=== PATIENT | male | born 1955 | race Caucasian/White ===

== ENCOUNTER → 2016-04-28 | Outpatient (CLI) | payer OTHER, MEDICAID ==
--- NOTE | 2016-04-28 15:11 | DX ---
Chest PA and Lateral Indication: Positive PPD. Findings: The lungs are clear. There is a stable thin scar in the left lower lung. There is a stab le stable tiny calcified granuloma in the left upper lobe. Heart size is normal. There is no adenopat hy, consolidation, pleural effusion or apical scarring. No cavitary lesion is identified. There is st able chronic widening of the right AC joint. Impression: Normal. No radiographic evidence for active granulomatous disease.
== END ==
LOC: FIMAGING 14:27
PROVIDERS: ATTEND Nurse Practitioner
DX: R76.11 Nonspecific reaction to tuberculin skin test without active tuberculosis (principal)

== ENCOUNTER → 2016-11-17 | Day surgery (SDC) | payer OTHER, MEDICAID ==
[~2016-11-17] MED LIST: IOPAMIDOL (ISOVUE-300) 100 ML BTL ONE
== END | disposition home or self-care (01) ==
LOC: FIMAGING 09:07
PROVIDERS: ATTEND Internal Medicine Nephrology
PROC: 057F3ZZ Dilation of Left Cephalic Vein, Percutaneous Approach (ICD-10-PCS; principal; 2016-11-17)
PROC: 05763ZZ Dilation of Left Subclavian Vein, Percutaneous Approach (ICD-10-PCS; principal; 2016-11-17)
PROC: B51W1ZZ Fluoroscopy of Dialysis Shunt/Fistula using Low Osmolar Contrast (ICD-10-PCS; principal; 2016-11-17)
CPT/HCPCS: 36902; 36907; C1769; C1894; C1725; J1644; Q9967

== ENCOUNTER → 2017-06-22 | Day surgery (SDC) | payer OTHER, MEDICAID ==
[~2017-06-22] MED LIST changes: +HEPARIN 10,000 UNIT/10 ML MDV (1,000 UNIT/ML) ONE; +LIDOCAINE 1% 300 MG/30 ML SDV ONE
== END | disposition home or self-care (01) ==
LOC: FIMAGING 07:20
PROVIDERS: ATTEND Internal Medicine Nephrology
PROC: 05L Upper Veins, Occlusion (ICD-10-PCS; principal; 2017-06-22)
PROC: 057F3DZ Dilation of Left Cephalic Vein with Intraluminal Device, Percutaneous Approach (ICD-10-PCS; principal; 2017-06-22)
PROC: B51W1ZZ Fluoroscopy of Dialysis Shunt/Fistula using Low Osmolar Contrast (ICD-10-PCS; principal; 2017-06-22)
DX: T82.858A Stenosis of other vascular prosthetic devices, implants and grafts, initial encounter (principal); N18.6 End stage renal disease; Z99.2 Dependence on renal dialysis
CPT/HCPCS: 36903; 36909; C1725; C1769; C1892; C1894; C1876; J1644; Q9967

== ENCOUNTER → 2017-12-21 | Day surgery (SDC) | payer OTHER, MEDICAID ==
[~2017-12-21] MED LIST changes: -IOPAMIDOL (ISOVUE-300) 100 ML BTL ONE; +IOPAMIDOL (ISOVUE-370) 150 ML BTL IV ONE; -LIDOCAINE 1% 300 MG/30 ML SDV ONE
--- NOTE | 2017-12-21 12:46 | PDRADPRE ---
Radiology History & Physical Indication for procedure: renal failure Home medications: Aspirin EC [Aspirin EC 81 mg (*)] 81 mg PO DAILY 11/02/14 [Last Taken 08/21/15] Atorvastatin Calcium [Lipitor 20 mg (*)] 20 mg PO HS 11/02/14 [Last Taken ] Cholecalciferol Vit D3 [Vitamin D3 (*)] 1,000 units PO DAILY 11/02/14 [Last Taken 08/21/15] Sevelamer Carbonate [Renvela] 2,400 mg PO TID 11/02/14 [Last Taken 08/21/15] Insulin Regular Human [Humulin R 100 units/ml (*)] 40 unit SC BID 01/24/15 [ Last Taken 08/21/15] Sensipar 1 tab PO MWF 12/16/17 [Last Taken Unknown] Allergies/Adverse Reactions: cocoa [chocolate] Allergy (Verified 11/02/14 18:34) Mental status: A&Ox3 Heart exam: regular rate and rhythm Lungs exam: clear to auscultation Mallampati Score: Class 2
--- NOTE | 2017-12-21 12:57 | PDRADPN ---
Radiology Procedure Note Date of Procedure: 12/21/17 Radiologist: Yeison Hale Anesthesia: Local (Specify) (Lidocaine) Pre-op Diagnosis: ESRD Post-op Diagnosis: ESRD Indication: AVF evaluation Procedure: Angioplasty, recanalization chronic subclavian venous occlusion Finding(s): Successful angioplasty high grade stenosis cephalic vein stent. Successful sharp recanalization and angioplasty of chronic left subclavian vein occlusion Inf/Abcess present in the surg proc area at time of surgery?: No
== END | disposition home or self-care (01) ==
LOC: FIMAGING 08:10
PROVIDERS: ATTEND Internal Medicine Nephrology
PROC: B34JZZZ Ultrasonography of Left Upper Extremity Arteries (ICD-10-PCS; principal; 2017-12-21)
PROC: 05763ZZ Dilation of Left Subclavian Vein, Percutaneous Approach (ICD-10-PCS; principal; 2017-12-21)
PROC: 057F3ZZ Dilation of Left Cephalic Vein, Percutaneous Approach (ICD-10-PCS; principal; 2017-12-21)
DX: T82.856A Stenosis of peripheral vascular stent, initial encounter (principal); I77.0 Arteriovenous fistula, acquired; N18.6 End stage renal disease
CPT/HCPCS: 36902; 37246; 75820; C1769; C1894; C1725; J1644; Q9967

== ENCOUNTER 2017-12-22 16:17 | Day surgery (SDC) | payer OTHER, MEDICAID ==
[2017-12-22] MEDS ORDERED: fentaNYL 100 MCG/2 ML INJ IVP PRN (16:43)
[2017-12-22] MEDS ORDERED: MEPERIDINE 25 MG/ML SYR IVP PRN (16:43)
[2017-12-22] MEDS ORDERED: PROTAMINE SULFATE 50 MG/5 ML VIAL IVP PRN (16:43)
[2017-12-22] MEDS ORDERED: FLUMAZENIL 0.5 MG/5 ML MDV IVP PRN (16:43)
[2017-12-22] MEDS ORDERED: GLUCAGON HCL 1 MG VIAL IVP PRN (16:43)
[2017-12-22] MEDS ORDERED: NALOXONE HCL 0.4 MG/ML INJ IVP PRN (16:43)
[2017-12-22] MEDS ORDERED: HEPARIN 10,000 UNIT/10 ML MDV (1,000 UNIT/ML) IVP PRN (16:43)
[2017-12-22] MEDS ORDERED: MIDAZOLAM 2 MG/2 ML VIAL IVP PRN (16:43)
[2017-12-22] MEDS ORDERED: ALTEPLASE 2 MG VIAL IVP PRN (16:43)
[2017-12-22] MEDS ORDERED: ceFAZolin 2 GM/DEXTROSE 100 ML IV ONE (16:43)
[2017-12-22] MEDS ORDERED: NS 1,000 ML IV SCH (16:45)
[2017-12-22 17:17] LABS: INR 1.16 (0.83-1.16)
[2017-12-22] MEDS ORDERED: LIDOCAINE 1% 300 MG/30 ML SDV ONE (18:23)
[2017-12-22] MEDS ORDERED: HEPARIN 50,000 UNIT/10 ML VIAL ONE (18:23)
[2017-12-22] MEDS ORDERED: NALOXONE HCL 0.4 MG/ML INJ ONE (18:30)
[2017-12-22] MEDS ORDERED: fentaNYL 100 MCG/2 ML INJ ONE (18:30)
--- NOTE | 2017-12-22 19:03 | PDRADPN ---
Radiology Procedure Note Date of Procedure: 12/22/17 Radiologist: Lori Pelayo Anesthesia: Local (Specify) Pre-op Diagnosis: esrd Post-op Diagnosis: esrd Indication: needs access for dialysis Procedure: tunneled line placement Inf/Abcess present in the surg proc area at time of surgery?: No
[2017-12-22] MEDS ORDERED: IOPAMIDOL (ISOVUE-300) 100 ML BTL ONE (19:18)
[2017-12-22 19:32] VITALS: BP 134/80
== END 2017-12-22 20:20 | disposition home or self-care (01) ==
LOC: FIMAGING 16:17
PROVIDERS: ATTEND Radiology Diagnostic Radiology
PROC: 02HV33Z Insertion of Infusion Device into Superior Vena Cava, Percutaneous Approach (ICD-10-PCS; principal; 2017-12-22 19:12)
PROC: 0JH63XZ Insertion of Tunneled Vascular Access Device into Chest Subcutaneous Tissue and Fascia, Percutaneous Approach (ICD-10-PCS; principal; 2017-12-22 19:12)
DX: N18.6 End stage renal disease (principal)
CPT/HCPCS: J0690; J1644; J2310; J3010; Q9967

== ENCOUNTER 2018-01-04 12:14 | Observation (INO) | payer OTHER, MEDICAID ==
[2018-01-04] MEDS ORDERED: ceFAZolin 2 GM/DEXTROSE 100 ML IV ONE (12:51)
[2018-01-04] MEDS ORDERED: NS 1,000 ML IV ONE (12:52)
[2018-01-04] MEDS ORDERED: LIDOCAINE 1% 2 ML INJ ID PRN (12:52)
[2018-01-04] MEDS ORDERED: THROMBIN (BOVINE) 5,000 UNIT VIAL TP ONE (13:03)
[2018-01-04] MEDS ORDERED: BUPIVACAINE 0.5% 30 ML SDV ONE (13:03)
[2018-01-04] MEDS ORDERED: PROTAMINE SULFATE 50 MG/5 ML VIAL IVP ONE (13:03)
--- NOTE | 2018-01-04 13:23 | PDHPUP ---
History & Physical Update H&P update statement: This history and physical update is based on an assessment of the patient which was completed after admission or registration (within 24 hours), but prior to the surgery/procedure. H&P update: H&P reviewed & patient examined, no change in patient's condition since H&P completed
[2018-01-04 13:38] LABS: PLATELET COUNT 186 10^3/uL (150-400)
[2018-01-04] MEDS ORDERED: fentaNYL 100 MCG/2 ML INJ ONE ×2 (15:10→15:58)
[2018-01-04] MEDS ORDERED: PROPOFOL/EMULSION 500 MG/50 ML BOTTLE IV ONE (15:11)
[2018-01-04] MEDS ORDERED: DEXAMETHASONE 4 MG/ML VIAL ONE (15:39)
[2018-01-04] MEDS ORDERED: ONDANSETRON 4 MG/2 ML VIAL ONE (15:39)
[2018-01-04] MEDS ORDERED: fentaNYL 100 MCG/2 ML INJ IVP PRN (16:05)
[2018-01-04] MEDS ORDERED: ALBUTEROL 3 ML DEYVIAL IH PRN (16:05)
[2018-01-04] MEDS ORDERED: ONDANSETRON 4 MG/2 ML VIAL IVP PRN (16:05)
[2018-01-04] MEDS ORDERED: DEXAMETHASONE 4 MG/ML VIAL IVP PRN (16:05)
[2018-01-04] MEDS ORDERED: NALOXONE HCL 0.4 MG/ML INJ IVP PRN (16:05)
--- NOTE | 2018-01-04 17:05 | POSTOPPROG ---
Post Op Note Date of Operation: 01/04/18 Surgeon: Ata Castillo Monorail Crane Operator: Fernanda Means Anesthesiologist: Christopher Ordaz Anesthesia: GET(General Endotracheal) Pre-op Diagnosis: CRF Post-op Diagnosis: same Procedure: RUE brachiocephalic AVF Findings: calcified artery, good thrill Inf/Abcess present in the surg proc area at time of surgery?: No EBL: Minimal Complications: none
[2018-01-04] MEDS ORDERED: HYDROmorphONE/DILAUDID 2 MG/ML INJ IVP PRN (17:16)
[2018-01-04] MEDS ORDERED: HYDROCODONE/APAP 5/325 TAB PO PRN (17:16)
[2018-01-04] MEDS ORDERED: INSULIN 70/30 HUMAN 100 UNIT/ML SYR SC ONE (21:45)
[2018-01-05] MEDS ORDERED: D50W 25 GM/50 ML VIAL IVP PRN (02:53)
[2018-01-05] MEDS: INSULIN REGULAR HUMAN 100 UNIT/ML UNIT SC SCH ×3 (03:07→11:21)
[2018-01-05] MEDS ORDERED: HYDROmorphONE/DILAUDID 1 MG/ML INJ IVP PRN (08:30)
--- NOTE | 2018-01-05 09:40 | SOAPPROG ---
[facility] Progress Note Assessment/Plan: Assessment: on dialysis/ AVF flow great/ wound ok/ hand perfusion good Plan:home 01/05/18 09:39 Objective: Vital Signs Temp Pulse Resp BP Pulse Ox 35.8 C L 67 18 159/74 H 94 01/05/18 09:14 01/05/18 09:14 01/05/18 09:14 01/05/18 09:14 01/05/18 09:14 Laboratory Results 01/04/18 13:17 01/04/18 13:17 01/04/18 01/05/18 01/06/18 05:59 05:59 05:59 Intake Total 1200 Output Total 0 Balance 1200 ICD10 Worksheet Patient Problems: Problems Problem Status Onset CHF (congestive heart failure) Acute Diabetes mellitus type 2 in obese Acute Diabetic foot infection Acute ESRD (end stage renal disease) on dialysis Acute MRSA (methicillin resistant Staphylococcus aureus) Acute 01/21/15
[2018-01-05 11:27] VITALS: BP 116/54
[2018-01-05] MEDS ORDERED: HEPARIN 50,000 UNIT/10 ML VIAL ONE (12:00)
--- NOTE | 2018-01-05 14:40 | ASDISCHSUM ---
Discharge Information Plan Status:Home with No Needs Medically Cleared to Leave:01/05/2018 Discharge Date:01/05/2018 12:45 PM CM D/C Disposition:Home, Routine, Self-Care ADT D/C Disposition:Home, Routine, Self-Care Projected Discharge Date:01/05/2018 12:45 PM Transportation at D/C:Self Discharge Delay Reason: Follow-Up Date:01/05/2018 12:45 PM Discharge Slot: Final Diagnosis: Placement Information Patient Contact Information Contact Name:CARLOS Relationship:Friend Address:[address] [place] [address] Work Phone: City:[place] Alternate Phone: [facility]/Zip Code:[place] [address] Email: Financial Information Financial Class:Medicare Primary Plan Desc:MEDICARE OUTPATIENT Primary Plan Number:[id number] Secondary Plan Desc:MED[place] Secondary Plan Number:[id number] Assessment Information LACE LACE Length of stay for Answers: Less than 1 day current admission Acuity / Level of Answers: No Care: Did the patient have an inpatient admission? Comorbidities - select Answers: Chronic pulmonary disease all that apply Congestive heart failure Diabetes (uncontrolled or controlled) Moderate or severe liver or renal disease Peripheral vascular disease Other Notes: HTN # of Emergency department Answers: 0 visits in the last 6 months Score: 11 Date Signed: 01/05/2018 02:39 PM Electronically Signed By:Emma Rangel RN Intervention Information Intervention Type:*BISMARK-Signed Date of Service:01/05/2018 12:20 PM Patient Type:Observation Staff Member:Rodolfo Larsen Hours: Discipline: Severity: Comment:
--- NOTE | 2018-01-06 11:57 | CPEKG ---
Test Reason : OPEN Blood Pressure : / mmHG Vent. Rate : 065 BPM Atrial Rate : 065 BPM P-R Int : 239 ms QRS Dur : 102 ms QT Int : 450 ms P-R-T Axes : 006 -03 042 degrees QTc Int : 468 ms Sinus rhythm Prolonged OH interval Inferior infarct, old First degree AVB is new in comparison to prior Confirmed by Ridge De Jesus ([id number]) on 01/06/2018 11:57:27 AM Referred By: Confirmed By:Ridge De Jesus
[2018-01-06] MEDS ORDERED: HEPARIN 5,000 UNIT/0.5 ML INJ SC SCH (22:00)
--- NOTE | 2018-01-10 13:30 | GDS ---
DISCHARGE DIAGNOSES: 1. Renal failure, in need of hemodialysis access. 2. Other diagnoses include: a. Diabetes. b. Peripheral vascular disease. c. Obesity. d. History of below-knee amputation. e. Other problems. PROCEDURES: Right upper extremity arteriovenous fistula creation, brachiocephalic. INTRAOPERATIVE FINDINGS: Patient was found to have a calcified artery, but a good thrill in the fist pasha vein postprocedure. HOSPITAL COURSE: Mr. Garner is a 62-year-old male, well known to us, who had a clotted left upper ext remity AV fistula, and was admitted to undergo right upper extremity AV fistula creation. The proced ure was uncomplicated, and he tolerated it well. He was kept overnight for observation, mostly for s ocial reasons. Nephrology was consulted and assisted in setting up dialysis for the following day. On postoperative day 1 his fistula was flowing well. His neck catheter was working well at dialysis. He was discharged to home in stable condition, with plans for outpatient followup, as well as thelma nued dialysis via his neck catheter. /[id number]/MODL
== END 2018-01-05 12:45 | disposition home or self-care (01) ==
LOC: F2W 12:14 → F3E 15:48 → F2W 17:57
PROVIDERS: ADMIT Surgery; ATTEND Surgery
PROC: 03170ZD Bypass Right Brachial Artery to Upper Arm Vein, Open Approach (ICD-10-PCS; principal; 2018-01-04 15:30)
DX: N18.6 End stage renal disease (principal); E11.9 Type 2 diabetes mellitus without complications; E66.09 Other obesity due to excess calories; Z89.521 Acquired absence of right knee
CPT/HCPCS: 36818; 93005; J0690; J1100; J1644; J1815; J2405; J2704; J2720; J3010

== ENCOUNTER 2018-02-21 10:36 | Emergency (ER) | payer OTHER, MEDICAID ==
[2018-02-21 10:44] VITALS: BP 128/68
--- NOTE | 2018-02-21 10:47 | EDPHY ---
H & P Stated Complaint: Clogged Port Time Seen by Provider: 02/21/18 10:38 HPI/ROS: CHIEF COMPLAINT: Occluded temporary dialysis catheter HISTORY OF PRESENT ILLNESS: The patient is on Wednesday hemodialysis currently has a temporary dialysis catheter awaiting maturation of a right arm AV fistula and presents to the ED with reported occlusion of his temporary dialysis catheter noted today. Interestingly, the patient was in the emergency department approximately 10 days ago with similar symptoms. At that point time he underwent a tPA protocol and ultimately was found to have a patent temporary dialysis catheter. The patient has no acute complaints at this point time. He specifically denies chest pain or shortness of breath. REVIEW OF SYSTEMS: A comprehensive 10 point review of systems is otherwise negative aside from elements mentioned in the history of present illness. Source: Patient Exam Limitations: No limitations - Personal History Current Tetanus Diphtheria and Acellular Pertussis (TDAP): Yes - Medical/Surgical History Hx Asthma: No Hx Chronic Respiratory Disease: Yes Hx Diabetes: Yes Hx Cardiac Disease: Yes Hx Renal Disease: Yes Hx Cirrhosis: No Hx Alcoholism: No Hx HIV/AIDS: No Hx Splenectomy or Spleen Trauma: No Other PMH: ESRD, DM 2, COPD, Peripheral vascular disease, cardiomyopathy, HTN, obesity, AV Fistula. right below knee amputation (Apr 2014) - Social History Smoking Status: Former smoker - Physical Exam Exam: General Appearance: Alert, no distress Eyes: Pupils equal and round no pallor or injection ENT, Mouth: Mucous membranes moist Respiratory: There are no retractions, lungs are clear to auscultation Cardiovascular: Regular rate and rhythm Gastrointestinal: Abdomen is soft and nontender, no masses, bowel sounds normal Neurological: 5/5 strength noted all 4 extremities Skin: Warm and dry, no rashes Musculoskeletal: Neck is supple nontender Extremities: Right BKA, AV fistula noted in the right upper extremity with palpable thrill Psychiatric: Patient is oriented X 3, there is no agitation Constitutional: Initial Vital Signs Temperature (C) 36.5 C 02/21/18 10:42 Heart Rate 59 L 02/21/18 10:42 Respiratory Rate 18 02/21/18 10:42 Blood Pressure 128/68 H 02/21/18 10:42 O2 Sat (%) 91 L 02/21/18 10:42 O2 Delivery Mode Room Air Allergies/Adverse Reactions: cocoa [chocolate] Allergy (Verified 02/11/18 12:18) sneezing, thorat fuzzy Home Medications: Medication Instructions Recorded Aspirin EC [Aspirin EC 81 mg (*)] 81 mg PO HS 01/04/18 Atorvastatin Calcium [Lipitor 20 20 mg PO HS 01/04/18 mg (*)] Cinacalcet HCl [Sensipar (*)] 30 mg PO MOWEFR 01/04/18 Herbals/Supplements -Info Only 1 ea PO DAILY 01/04/18 Insulin NPH Human Isophane 40 unit SQ BID@01/04/18 [Humulin N] Insulin Regular Human [Humulin R 50 unit SC BIDMEAL 01/04/18 100 units/ml (*)] Metoprolol Succinate Xr [Toprol Xl 100 mg PO HS 01/04/18 100 mg (*)] Sevelamer HCl [Renagel 800mg (*)] 2,400 mg PO TIDMEAL 01/04/18 Hydrocodone/APAP 5/325 [[place] 1 - 2 tab PO Q4 PRN #30 tab 01/05/18 5/325 (*)] Medical Decision Making ED Course/Re-evaluation: The patient presents to the ED for evaluation of a malfunctioning dialysis catheter. The ED nurse was able to flush the catheter successfully in the emergency department. The patient will be transferred back to dialysis via ambulance to complete his scheduled treatment Departure - Departure Disposition: Home, Routine, Self-Care Clinical Impression: Occlusion of central line Qualifiers: Encounter type: initial encounter Qualified Code(s): T82.594A - Other mechanical complication of infusion catheter, initial encounter Condition: Good Referrals: Patient,NotPresent [Primary Care Provider] - As per Instructions
--- NOTE | 2018-02-21 17:04 | ASMTCMCOM ---
CM Note CM Note Notes: Pt presented to the ED via EMS from [facility] in [place] for a clogged dialysis catheter. Pt was seen for same reason approx 10 days ago. Pt ready to return to [facility] to complete his treatment. This CM was going to arrange for a Medicaid cab via [employer] but [facility] stretcher transport had already been arranged by ED staff and [facility] arrived while this CM was on the phone w/[employer]. ED RN completed PCS form, copy provided to EMS, original to be scanned into chart. CM available for further assistance if needed. Date Signed: 02/21/2018 05:03 PM Electronically Signed By:Yoly Ro RN
== END 2018-02-21 11:20 | disposition home or self-care (01) ==
LOC: EDUNIT#
DX: T82.49XA Other complication of vascular dialysis catheter, initial encounter (principal); E11.22 Type 2 diabetes mellitus with diabetic chronic kidney disease; I12.0 Hypertensive chronic kidney disease with stage 5 chronic kidney disease or end stage renal disease; N18.6 End stage renal disease; J44.9 Chronic obstructive pulmonary disease, unspecified; I73.9 Peripheral vascular disease, unspecified; I42.9 Cardiomyopathy, unspecified; Z87.891 Personal history of nicotine dependence

== ENCOUNTER → 2018-05-24 | Day surgery (SDC) | payer OTHER, MEDICAID | LOC: FIMAGING 07:42 ==

== ENCOUNTER 2018-05-31 11:01 | Day surgery (SDC) | payer OTHER, MEDICAID ==
[2018-05-31 12:58] LABS: INR 1.14 (0.83-1.16); PROTIME(PATIENT) 14.1 SEC (12.0-15.0)
--- NOTE | 2018-05-31 13:05 | PDANEPAE ---
ANE Past Medical History - Cardiovascular History Hx Hypertension: Yes Hx Arrhythmias: No Hx Chest Pain: No Hx Coronary Artery / Peripheral Vascular Disease: Yes Hx CHF / Valvular Disease: Yes Hx Palpitations: No Cardiovascular History Comment: HX SYSTOLIC HEART FAILURE. PERIPHERAL VASC DISEASE POST STENTING - Pulmonary History Hx COPD: No Hx Asthma/Reactive Airway Disease: No Hx Recent Upper Respiratory Infection: No Hx Oxygen in Use at Home: No Hx Sleep Apnea: Yes Sleep Apnea Screening Result - Last Documented: Positive Pulmonary History Comment: Dx w/ sleep apnea - does not use a CPAP - Neurologic History Hx Cerebrovascular Accident: No Hx Seizures: No Hx Dementia: No - Endocrine History Hx Diabetes: Yes Obesity: yes Endocrine History Comment: DM II - Renal History Hx Renal Disorders: Yes Renal History Comment: Dialysis 3x week. ESRD. BPH - Liver History Hx Hepatic Disorders: No - Neurological & Psychiatric Hx Hx Neurological and Psychiatric Disorders: No - Cancer History Hx Cancer: No - Congenital Disorder History Hx Congenital Disorders: No - GI History GERD: no Hx Gastrointestinal Disorders: No - Other Health History Other Health History: OBESITY. HYPERPARATHYROIDISM - Chronic Pain History Chronic Pain: No - Surgical History Prior Surgeries: temp HD Cath 12/22. surgery on both feet. fisula left arm (no longer working). bilateral cataracts. RT LOWER amputation r/t INFECTION/SURG- MRSA. RT BKA. AV FISTULA ANE Review of Systems Review of Systems: - Exercise capacity METS (RN): 3 METS ANE Patient History - Allergies Allergies/Adverse Reactions: cocoa [chocolate] Allergy (Verified 05/19/18 11:57) sneezing, throat fuzzy - Home Medications Home Medications: Aspirin EC [Aspirin EC 81 mg (*)] 81 mg PO HS 01/04/18 [Last Taken 05/30/18] Atorvastatin Calcium [Lipitor 20 mg (*)] 20 mg PO HS 01/04/18 [Last Taken ] Cinacalcet HCl [Sensipar (*)] 30 mg PO MOWEFR 01/04/18 [Last Taken 05/30/18] Insulin NPH Human Isophane [Humulin N] 40 unit SQ DAILY 01/04/18 [Last Taken 02/07] Insulin Regular Human [Humulin R 100 units/ml (*)] 40 unit SC BIDMEAL 01/04/18 [ Last Taken 05/30/18] Metoprolol Succinate Xr [Toprol Xl 100 mg (*)] 100 mg PO HS 01/04/18 [Last Taken 05/30/18] Dialyvite 800 Chewable Wafer PO DAILY 05/19/18 [Last Taken 05/30/18] Renvela 300 mg PO TID 05/19/18 [Last Taken 05/30/18] Sensipar PO DAILY 05/19/18 [Last Taken 05/30/18] - Smoking Hx Smoking Status: Former smoker - Family Anes Hx Family Hx Anesthesia Complications: NONE ANE Labs/Vital Signs - Labs Result Diagrams: 05/31/18 12:00 05/31/18 12:00 - Vital Signs Vital Signs: reviewed preoperatively; see RN documention for details Blood Pressure: 126/43 Heart Rate: 60 Respiratory Rate: 16 O2 Sat (%): 92 Height: 172.72 cm Weight: 133 kg ANE Physical Exam - Airway Neck exam: FROM Mallampati Score: Class 1 Mouth exam: dentures - Pulmonary Pulmonary: no respiratory distress, clear to auscultation - Cardiovascular Cardiovascular: regular rate and rhythym - ASA Status ASA Status: III ANE Anesthesia Plan Anesthesia Plan: GA w LMA
[2018-05-31] MEDS ORDERED: PROTAMINE SULFATE 50 MG/5 ML VIAL IVP PRN (14:43)
[2018-05-31] MEDS ORDERED: FLUMAZENIL 0.5 MG/5 ML MDV IVP PRN (14:43)
[2018-05-31] MEDS ORDERED: ALTEPLASE 2 MG VIAL IVP PRN (14:43)
[2018-05-31] MEDS ORDERED: GLUCAGON HCL 1 MG VIAL IVP PRN (14:43)
[2018-05-31] MEDS ORDERED: NALOXONE HCL 0.4 MG/ML INJ IVP PRN (14:43)
[2018-05-31] MEDS ORDERED: MIDAZOLAM 2 MG/2 ML VIAL IVP PRN (14:43)
[2018-05-31] MEDS ORDERED: MEPERIDINE 25 MG/ML SYR IVP PRN (14:43)
[2018-05-31] MEDS ORDERED: fentaNYL 100 MCG/2 ML INJ IVP PRN (14:43)
[2018-05-31] MEDS ORDERED: HEPARIN 10,000 UNIT/10 ML MDV (1,000 UNIT/ML) IVP PRN (14:43)
[2018-05-31] MEDS ORDERED: NS 1,000 ML IV SCH (14:45)
[2018-05-31] MEDS ORDERED: IOPAMIDOL (ISOVUE-300) 100 ML BTL ONE (15:37)
[2018-05-31] MEDS ORDERED: ONDANSETRON 4 MG/2 ML VIAL IVP PRN (15:52)
[2018-05-31] MEDS ORDERED: OXYCODONE/APAP 5/325 TAB PO PRN (15:52)
--- NOTE | 2018-05-31 15:54 | PDRADPRE ---
Radiology History & Physical Indication for procedure: renal failure (Chronic occlusion right cephalic vein- plan for attempted recanalization) Home medications: Aspirin EC [Aspirin EC 81 mg (*)] 81 mg PO HS 01/04/18 [Last Taken 05/30/18] Atorvastatin Calcium [Lipitor 20 mg (*)] 20 mg PO HS 01/04/18 [Last Taken ] Cinacalcet HCl [Sensipar (*)] 30 mg PO MOWEFR 01/04/18 [Last Taken 05/30/18] Insulin NPH Human Isophane [Humulin N] 40 unit SQ DAILY 01/04/18 [Last Taken 02/07] Insulin Regular Human [Humulin R 100 units/ml (*)] 40 unit SC BIDMEAL 01/04/18 [ Last Taken 05/30/18] Metoprolol Succinate Xr [Toprol Xl 100 mg (*)] 100 mg PO HS 01/04/18 [Last Taken 05/30/18] Dialyvite 800 Chewable Wafer PO DAILY 05/19/18 [Last Taken 05/30/18] Renvela 300 mg PO TID 05/19/18 [Last Taken 05/30/18] Sensipar PO DAILY 05/19/18 [Last Taken 05/30/18] Allergies/Adverse Reactions: cocoa [chocolate] Allergy (Verified 05/19/18 11:57) sneezing, throat fuzzy Mental status: A&Ox3 Heart exam: regular rate and rhythm Lungs exam: clear to auscultation Mallampati Score: Class 3
--- NOTE | 2018-05-31 15:54 | PDPROPOC ---
Sedation Plan of Care Sedation Plan of Care: vital signs stable, mental status noted, patient educated of risks, benefits, alternatives, patient can tolerate sedation ASA Classification: ASA 2 Planned drugs: fentanyl, midazolam Mallampati Score: Class 3 Mallampati Reference Image: Patient passed 3-3-2 rule?: Yes
--- NOTE | 2018-05-31 15:56 | PDRADPN ---
Radiology Procedure Note Date of Procedure: 05/31/18 Radiologist: Yeison Hale Anesthesia: IV Sedation Pre-op Diagnosis: ESRD Post-op Diagnosis: ESRD Indication: Chronic occlusion right cephalic vein Procedure: Attempted recanalization of chronic occlusion Finding(s): Unsuccessful recanalization. [place] vessel chronically occluded and unable to be recanalized. Inf/Abcess present in the surg proc area at time of surgery?: No EBL: Minimal
[2018-05-31 17:17] VITALS: BP 125/20
== END 2018-05-31 17:15 | disposition home or self-care (01) ==
LOC: FIMAGING 11:01
PROVIDERS: ATTEND Radiology Vascular & Interventional Radiology
DX: I82.711 Chronic embolism and thrombosis of superficial veins of right upper extremity (principal); N18.6 End stage renal disease; E11.22 Type 2 diabetes mellitus with diabetic chronic kidney disease; E21.3 Hyperparathyroidism, unspecified; Z89.511 Acquired absence of right leg below knee; Z86.14 Personal history of Methicillin resistant Staphylococcus aureus infection
CPT/HCPCS: 36902; 76937; 99152; C1769; J1644; J3010; Q9967